=== PATIENT | female | born 1960 | race Caucasian/White ===

== ENCOUNTER 2023-01-29 17:16 | Emergency (ER) | payer SELFPAY ==
[~2023-01-29] VITALS: Ht 165.1 cm; Wt 79.0 kg
[2023-01-29 17:39] VITALS: BP 119/65; PULSE 108; RESP 19; TEMP 97.1; O2SAT 96
[2023-01-29] MEDS ORDERED: KETOROLAC 30 MG/ML VIAL IM ONE (18:25)
[2023-01-29 19:06] LABS: FLU A ANTIGEN negative (NEGATIVE); FLU B ANTIGEN NEGATIVE (NEGATIVE)
[2023-01-29 19:19] LABS: BILIRUBIN,URINE NEGATIVE (NEGATIVE); BLOOD, URINE NEGATIVE (NEGATIVE); COLOR,URINE YELLOW (YELLOW); LEUKOCYTE ESTERASE ,URINE 2+ (NEGATIVE); NITRITE, URINE NEGATIVE (NEGATIVE); PROTEIN,URINE NEGATIVE (NEGATIVE); UGLUCOSE NEGATIVE (NEGATIVE); UROBILINOGEN,URINE 0.2 EU/dL (0.2 - 1)
[2023-01-29 19:58] LABS: APPEARANCE,URINE HAZY (CLEAR)
[2023-01-29 20:00] LABS: BACTERIA,URINE 1+ /HPF (None Seen); RBC,URINE NONE SEEN /HPF (0-5); SQUAMOUS EPITHELIAL CELL,UR 4-10 (MOD) /LPF (0-3 (FEW)); WBC,URINE 60-80 /HPF (0-5)
[2023-01-29] MEDS ORDERED: NITR100C7 PO (20:05)
[2023-01-29] MEDS ORDERED: NAPR-1704 PO (20:05)
[2023-01-29] MEDS ORDERED: DICL100G32 TP (20:05)
[2023-01-29 20:23] VITALS: BP 119/65; PULSE 98; RESP 19; TEMP 97.1; O2SAT 96
== END 2023-01-29 20:23 | disposition home or self-care (01) ==
LOC: MED 17:16
DX: N39.0 Urinary tract infection, site not specified (principal); Z20.822 Contact with and (suspected) exposure to COVID-19; M19.90 Unspecified osteoarthritis, unspecified site; Z79.899 Other long term (current) drug therapy
CPT/HCPCS: 81001; 87086; 87426; 87804; 96372; 99283; J1885